=== PATIENT | male | born 1940 | race Caucasian/White ===

== ENCOUNTER 2017-03-24 12:39 | Emergency (ER) | payer MEDICARE, OTHER ==
[~2017-03-24] VITALS: Ht 177.8 cm; Wt 108.9 kg
[2017-03-24 13:29] LABS: Basophils # (auto) 0 uL; Basophils % (auto) 0.6 % (0.0-2.0); Eosinophils # (auto) 0.1 uL; Eosinophils % (auto) 1.7 % (0.0-7.0); Hematocrit 44.3 % (41.0-53.0); Hemoglobin 14.9 g/dL (13.5-17.5); Lymphocytes # (auto) 0.7 uL; Lymphocytes % (auto) 8.9 % (10.0-50.0); Mean Corpuscular Hemoglobin 30.5 pg (28.0-32.0); Mean Corpuscular Hgb Conc. 33.5 g/dL (32.0-36.0); Mean Corpuscular Volume 91.1 fL (80.0-100.0); Monocytes # (auto) 0.5 uL; Monocytes % (auto) 5.5 % (0.0-12.0); Neutrophils # (auto) 6.9 uL; Neutrophils % (auto) 83.3 % (37.0-80.0); Nucleated Red Blood Cells % 0.1 %; Platelet Count (auto) 282 10^3/uL (140-450); Red Blood Cells 4.87 10^6/uL (4.5-5.90); White Blood Cell 8.3 10^3/uL (4.4-10.8)
[2017-03-24 13:51] LABS: Alanine Aminotransferase 50 U/L (16-61); Albumin 2.9 g/dL (3.4-5.0); Alkaline Phosphatase 90 U/L (45-117); Anion Gap 7 (5-15); Aspartate Aminotransferase 32 U/L (15-37); BUN/Creatinine Ratio 24.5; Bilirubin, Total 0.6 mg/dL (0.2-1.0); Blood Urea Nitrogen 27 mg/dL (7-18); Calcium 8.5 mg/dL (8.5-10.1); Carbon Dioxide 27 mmol/L (21-32); Chloride 106 mmol/L (98-107); GFR African American 83 mL/min; GFR Non-African American 69 mL/min; Glucose 100 mg/dL (74-106); Magnesium 2.7 mg/dL (1.6-2.6); Potassium 4.5 mmol/L (3.5-5.1); Sodium 140 mmol/L (136-145); Total Protein 7.1 g/dL (6.4-8.2)
[2017-03-24 14:53] VITALS: BP 109/66
== END 2017-03-24 17:12 | disposition home or self-care (01) ==
LOC: EDBD 12:39 → ER 12:39
DX: J40 Bronchitis, not specified as acute or chronic (principal); I48.91 Unspecified atrial fibrillation; I25.10 Atherosclerotic heart disease of native coronary artery without angina pectoris
CPT/HCPCS: 36415; 71046; 80053; 83735; 84484; 85025; 93005

== ENCOUNTER 2023-11-27 08:22 | Inpatient (IN) | payer MEDICARE, OTHER ==
[~2023-11-27] VITALS: Ht 177.8 cm; Wt 104.0 kg
[~2023-11-27 08:22] MED LIST: ATOR-507 PO; SPIR25TA8 PO; TRAZ-227 PO
[2023-11-27 08:52] VITALS: PULSE 65; RESP 15; O2SAT 96
[2023-11-27 10:16] LABS: Urine Bacteria None Seen /hpf (None Seen)
[2023-11-27 10:48] LABS: COVID19 ANTIGEN SOFIA FIA NEGATIVE (NEGATIVE)
[2023-11-27 10:51] LABS: Urine Blood Negative /uL (Negative); Urine Clarity Clear (Clear); Urine Color Yellow (Yellow); Urine Mucus FEW (None Seen); Urine Protein, UAD Negative (Negative); Urine Specific Gravity 1.019 (1.001-1.035); Urine Urobilinogen Normal (Negative); Urine WBC 1 /hpf (0 - 3)
[2023-11-27 11:12] LABS: Basophils % (auto) 0.5 % (0.0-2.0); Eosinophils # (auto) 0 10 ^3/uL (0-0.8); Eosinophils % (auto) 0.1 % (0.0-7.0)
[2023-11-27 11:14] LABS: Basophils # (auto) 0.1 10 ^3/uL (0-0.2); Hematocrit 50.1 % (41.0-53.0); Hemoglobin 16.7 g/dL (13.5-17.5); Lymphocytes # (auto) 0.6 10 ^3/uL (0.4-5.4); Lymphocytes % (auto) 5.4 % (10.0-50.0); Mean Corpuscular Hemoglobin 31.2 pg (28.0-32.0); Mean Corpuscular Hgb Conc. 33.4 g/dL (32.0-36.0); Mean Corpuscular Volume 93.5 fL (80.0-100.0); Monocytes % (auto) 8.3 % (0.0-12.0); Neutrophils # (auto) 10.2 10 ^3/uL (1.6-8.6); Neutrophils % (auto) 85.7 % (37.0-80.0); Nucleated Red Blood Cells % 0.1 %; Platelet Count (auto) 76 10^3/uL (140-450); Red Blood Cells 5.36 10^6/uL (4.5-5.90); Red Cell Distribution Width 15.1 % (11.8-14.3); White Blood Cell 11.9 10^3/uL (4.4-10.8)
[2023-11-27 11:23] LABS: Alanine Aminotransferase 21 U/L (7-40); Albumin 4.2 g/dL (3.2-4.8); Alkaline Phosphatase 129 U/L (46-116); Anion Gap 10 (5-15); Aspartate Aminotransferase 29 U/L (13-40); BUN/Creatinine Ratio 11.2 (10.0-20.0); Blood Urea Nitrogen 11 mg/dL (9-23); Calcium 9.5 mg/dL (8.7-10.4); Carbon Dioxide 26 mmol/L (20-30); Chloride 105 mmol/L (98-107); Glucose 99 mg/dL (74-106); Potassium 3.7 mmol/L (3.5-5.1); Sodium 141 mmol/L (136-145)
[2023-11-27 11:24] LABS: Bilirubin, Total 1.4 mg/dL (0.2-1.0); Total Protein 6.6 g/dL (5.7-8.2)
[2023-11-27 13:51] LABS: Amphetamine Screen, Urine Neg (NEGATIVE); Barbiturate Scree,Urine Neg (NEGATIVE); Benzodiazephine Screen, Urine Neg (NEGATIVE); Cannabinoid Screen, Urine Neg (NEGATIVE); Cocaine Screen, Urine Neg (NEGATIVE); Opiate Scree,Urine Neg (NEGATIVE); Phencyclidine Screen, Urine Neg (NEGATIVE)
[2023-11-27] MEDS ORDERED: PRIM50TA5 GT (14:23)
[2023-11-27] MEDS ORDERED: ALBU1NEB5 IN (14:23)
[2023-11-27] MEDS ORDERED: AMIO200T33 PO (14:23)
[2023-11-27] MEDS ORDERED: DONE1TAB88 PO (14:23)
[2023-11-27] MEDS ORDERED: FURO20TA3 PO (14:23)
[2023-11-27] MEDS ORDERED: NITR0.4S29 SL (14:23)
[2023-11-27] MEDS ORDERED: AMLO1TAB22 PO (14:23)
[2023-11-27] MEDS ORDERED: ASPI-543 PO (14:23)
[2023-11-27] MEDS ORDERED: ENAL1TAB48 PO (14:23)
[2023-11-27 14:26] LABS: Platelet Estimate Decreased
[2023-11-27] MEDS ORDERED: ENOXAPARIN SOD 40 MG/0.4 ML SYRINGE SC SCH (18:30)
[2023-11-27] MEDS ORDERED: NITROGLYCERIN 0.4 MG SL TAB SL PRN (18:30)
[2023-11-27] MEDS: FUROSEMIDE 40 MG/4 ML VIAL IV ONE (18:30)
[2023-11-27 20:00] VITALS: PULSE 82; RESP 16; O2SAT 95
[2023-11-27] MEDS: AMIODARONE HCL 200 MG TAB PO SCH (21:41)
[2023-11-27] MEDS: LORazepam 2MG/ML-1ML VIAL IV ONE (21:42)
[2023-11-27] MEDS: ENALAPRIL MALEATE 10 MG TAB PO SCH (21:42)
[2023-11-27] MEDS: ATORVASTATIN 20 MG TAB PO SCH (21:42)
[2023-11-27] MEDS: DONEPEZIL HYDROCHLORIDE 5 MG TAB PO SCH (21:42)
[2023-11-27 23:15] LABS: Folate (Folic Acid) 31.84 ng/mL (>5.38)
[2023-11-28] MEDS: LORazepam 2MG/ML-1ML VIAL IV ONE (04:56)
[2023-11-28] MEDS: FUROSEMIDE 20 MG/2 ML VIAL IV SCH (06:00)
[2023-11-28 07:08] LABS: Alanine Aminotransferase 21 U/L (7-40); Albumin 3.8 g/dL (3.2-4.8); Alkaline Phosphatase 118 U/L (46-116); Anion Gap 8 (5-15); Aspartate Aminotransferase 35 U/L (13-40); BUN/Creatinine Ratio 11.1 (10.0-20.0); Bilirubin, Total 1.5 mg/dL (0.2-1.0); Blood Urea Nitrogen 12 mg/dL (9-23); Calcium 9.1 mg/dL (8.7-10.4); Carbon Dioxide 27 mmol/L (20-30); Chloride 105 mmol/L (98-107); Cholesterol 146 mg/dL (< 200); Glucose 98 mg/dL (74-106); HDL Cholesterol 37 mg/dL (40-59); LDL Cholesterol 88 mg/dL (< 100); Sodium 140 mmol/L (136-145); Triglycerides 112 mg/dL (< 150)
[2023-11-28 07:49] LABS: Basophils # (auto) 0.1 10 ^3/uL (0-0.2); Basophils % (auto) 0.5 % (0.0-2.0); Eosinophils # (auto) 0.2 10 ^3/uL (0-0.8); Eosinophils % (auto) 1.2 % (0.0-7.0); Hematocrit 48.1 % (41.0-53.0); Hemoglobin 16.3 g/dL (13.5-17.5); Lymphocytes # (auto) 1.3 10 ^3/uL (0.4-5.4); Lymphocytes % (auto) 9.4 % (10.0-50.0); Mean Corpuscular Hemoglobin 31.4 pg (28.0-32.0); Mean Corpuscular Hgb Conc. 33.8 g/dL (32.0-36.0); Mean Corpuscular Volume 92.9 fL (80.0-100.0); Monocytes # (auto) 1.1 10 ^3/uL (0-1.3); Neutrophils # (auto) 10.8 10 ^3/uL (1.6-8.6); Neutrophils % (auto) 80.9 % (37.0-80.0); Nucleated Red Blood Cells % 0.9 %; Platelet Count (auto) 163 10^3/uL (140-450); Red Blood Cells 5.18 10^6/uL (4.5-5.90); Red Cell Distribution Width 15.1 % (11.8-14.3); White Blood Cell 13.3 10^3/uL (4.4-10.8)
[2023-11-28 08:00] VITALS: PULSE 57; RESP 20; O2SAT 98
[2023-11-28] MEDS ORDERED: ASPirin-EC 81 mg tab PO SCH (10:00)
[2023-11-28] MEDS ORDERED: VANCOMYCIN PER PHARMACY 0 MG IV SCH (10:15)
[2023-11-28] MEDS: PRIMIDONE 50 MG TAB PO SCH (10:25)
[2023-11-28] MEDS: SPIRONOLACTONE 25 MG TAB PO SCH (10:26)
[2023-11-28] MEDS: amLODIPine BESYLATE 5 MG TAB PO SCH (10:26)
[2023-11-28 10:57] LABS: Platelet Estimate Adequate
[2023-11-28] MEDS: VANCOMYCIN 1GM/200ML 200 ML IV SCH (11:11)
[2023-11-28] MEDS: ENOXAPARIN SOD 30 MG/0.3 ML SYRINGE SC ONE (12:39)
[2023-11-28] MEDS: ASPirin 81 mg TAB PO ONE (12:39)
[2023-11-28] MEDS: LORazepam 2MG/ML-1ML VIAL IV PRN (14:36)
[2023-11-28 19:10] VITALS: PULSE 71; RESP 20; O2SAT 98
[2023-11-28 21:49] VITALS: BP 110/51; PULSE 66; RESP 20; TEMP 97.1; O2SAT 95
[2023-11-29] VITALS (9 sets, daily range): BP systolic 116–139; BP diastolic 54–81; PULSE 57–79; RESP 16–20; TEMP 97.8–98.6; O2SAT 93–98
[2023-11-29] MEDS: VANCOMYCIN 1GM/200ML 200 ML IV SCH
[2023-11-29 05:55] LABS: Basophils # (auto) 0 10 ^3/uL (0-0.2); Basophils % (auto) 0.5 % (0.0-2.0); Eosinophils # (auto) 0.2 10 ^3/uL (0-0.8); Eosinophils % (auto) 2.4 % (0.0-7.0); Hematocrit 49.2 % (41.0-53.0); Hemoglobin 16.3 g/dL (13.5-17.5); Lymphocytes # (auto) 0.8 10 ^3/uL (0.4-5.4); Lymphocytes % (auto) 8.9 % (10.0-50.0); Mean Corpuscular Hemoglobin 31.3 pg (28.0-32.0); Mean Corpuscular Volume 94.8 fL (80.0-100.0); Monocytes # (auto) 0.9 10 ^3/uL (0-1.3); Monocytes % (auto) 9.1 % (0.0-12.0); Neutrophils # (auto) 7.5 10 ^3/uL (1.6-8.6); Neutrophils % (auto) 79.1 % (37.0-80.0); Nucleated Red Blood Cells % 0.1 %; Platelet Count (auto) 157 10^3/uL (140-450); Red Cell Distribution Width 15.6 % (11.8-14.3); White Blood Cell 9.5 10^3/uL (4.4-10.8)
[2023-11-29] MEDS: ENOXAPARIN SOD 30 MG/0.3 ML SYRINGE SC SCH (10:18)
[2023-11-29] MEDS: ASPirin 81 mg TAB PO SCH (10:18)
[2023-11-29] MEDS: SODIUM CHLORIDE 0.9% 1,000 ML IV SCH (10:19)
[2023-11-29 16:10] LABS: Alanine Aminotransferase 20 U/L (7-40); Albumin 3.9 g/dL (3.2-4.8); Alkaline Phosphatase 116 U/L (46-116); Anion Gap 18 (5-15); Aspartate Aminotransferase 31 U/L (13-40); BUN/Creatinine Ratio 14.6 (10.0-20.0); Bilirubin, Total 0.9 mg/dL (0.2-1.0); Blood Urea Nitrogen 14 mg/dL (9-23); Calcium 9.2 mg/dL (8.7-10.4); Carbon Dioxide 18 mmol/L (20-30); Chloride 106 mmol/L (98-107); Glucose 84 mg/dL (74-106); Magnesium 2.3 mg/dL (1.6-2.6); Potassium 3.7 mmol/L (3.5-5.1); Sodium 142 mmol/L (136-145)
[2023-11-29 16:11] LABS: Total Protein 6.2 g/dL (5.7-8.2)
[2023-11-29] MEDS: HALOPERIDOL LACTATE 5 MG/ML INJ VIAL IV PRN (23:15)
[2023-11-30] VITALS (7 sets, daily range): BP systolic 91–153; BP diastolic 42–84; PULSE 53–82; RESP 16–20; TEMP 97.7–98.3; O2SAT 93–97
[2023-12-01 00:16] VITALS: BP 130/47; PULSE 64; RESP 18; TEMP 98.2; O2SAT 93
[2023-12-01 09:00] VITALS: BP 120/61; PULSE 63; RESP 18; TEMP 98; O2SAT 96
[2023-12-01] MEDS: ceFAZolin 1GM/50ML 50 ML IV SCH (16:55)
[2023-12-01 17:00] VITALS: BP 113/54; PULSE 63; RESP 18; TEMP 98.1; O2SAT 96
[2023-12-01 20:00] VITALS: PULSE 61; PULSE 63; RESP 18; O2SAT 95
[2023-12-01 21:00] VITALS: BP 137/51; PULSE 62; RESP 18; TEMP 98.1; O2SAT 94
[2023-12-02 01:00] VITALS: BP 122/53; PULSE 61; RESP 18; TEMP 98; O2SAT 95
[2023-12-02 05:00] VITALS: BP 117/56; PULSE 63; RESP 18; TEMP 98.1; O2SAT 94
[2023-12-02 08:00] VITALS: PULSE 57; PULSE 72; RESP 18; O2SAT 95
[2023-12-02 09:00] VITALS: BP 97/79; PULSE 66; RESP 18; TEMP 98.5; O2SAT 96
[2023-12-02 13:00] VITALS: BP 139/54; PULSE 64; RESP 18; TEMP 98; O2SAT 96
[2023-12-02 17:31] VITALS: BP 170/71; PULSE 62; RESP 18; TEMP 98.2; O2SAT 99
== END 2023-12-02 21:11 | DRG 871 ==
LOC: EDBD 08:22 → ER 08:22 → TELE 18:39 → TELE-EAST 11-28 21:38
PROVIDERS: ADMIT Nurse Practitioner Family; ATTEND Family Medicine
PROC: 05HB33Z Insertion of Infusion Device into Right Basilic Vein, Percutaneous Approach (ICD-10-PCS; principal; 2023-12-01)
PROC: B54NZZA Ultrasonography of Left Upper Extremity Veins, Guidance (ICD-10-PCS; 2023-12-01)
DX: A41.9 Sepsis, unspecified organism (principal); G93.41 Metabolic encephalopathy; I50.43 Acute on chronic combined systolic (congestive) and diastolic (congestive) heart failure; E46 Unspecified protein-calorie malnutrition; F03.918 Unspecified dementia, unspecified severity, with other behavioral disturbance; M62.82 Rhabdomyolysis; J44.1 Chronic obstructive pulmonary disease with (acute) exacerbation; I48.20 Chronic atrial fibrillation, unspecified; Z20.822 Contact with and (suspected) exposure to COVID-19; I11.0 Hypertensive heart disease with heart failure; D69.6 Thrombocytopenia, unspecified; G25.0 Essential tremor; I25.10 Atherosclerotic heart disease of native coronary artery without angina pectoris; I73.9 Peripheral vascular disease, unspecified; I25.5 Ischemic cardiomyopathy; F51.04 Psychophysiologic insomnia; I49.3 Ventricular premature depolarization; Z68.32 Body mass index [BMI] 32.0-32.9, adult; Z79.899 Other long term (current) drug therapy; I25.2 Old myocardial infarction; Z95.1 Presence of aortocoronary bypass graft; W01.0XXA Fall on same level from slipping, tripping and stumbling without subsequent striking against object, initial encounter; Y93.89 Activity, other specified; Y92.89 Other specified places as the place of occurrence of the external cause; Y99.8 Other external cause status; Z79.82 Long term (current) use of aspirin
CPT/HCPCS: 36415; 70450; 70551; 71045; 73502; 80053; 80061; 80202; 80307; 80320; 81001; 82550; 82565; 82607; 82746; 83605; 83735; 83880; 84443; 84484; 85025; 87040; 87077; 87186; 87426; 93005; 93306; 95819; 96374; 97110; 97116; 97163; 97530; G0378